=== PATIENT | female | born 1995 | race Two or more races ===

== ENCOUNTER 2021-04-14 09:21 | Emergency (ER) | payer OTHER ==
[~2021-04-14] VITALS: Ht 160 cm; Wt 75.8 kg
[2021-04-14] MEDS ORDERED: PROMETHAZINE 25 MG/ML, 1ML ONE (09:54)
[2021-04-14] MEDS ORDERED: HYDROcodone/APAP 5/325 TABLET ONE ×2 (09:56→11:14)
[2021-04-14] MEDS ORDERED: HYDROcodone/APAP 5/325 TABLET PO ONE (10:00)
[2021-04-14] MEDS ORDERED: PROMETHAZINE 25 MG/ML, 1ML IM ONE (10:00)
[2021-04-14 10:09] LABS: MICROSCOPIC INDICATED
[2021-04-14 10:11] LABS: HCG UR SG 1.033 (1.003-1.030)
[2021-04-14] MEDS ORDERED: SODIUM CHLORIDE FLUSH 10ML SYR IVF ONE (10:30)
[2021-04-14 10:50] LABS: BASOPHILS % (AUTO) 0 % (0-1); EOSINOPHILS % (AUTO) 1 % (1-7); LYMPHOCYTES % (AUTO) 13 % (22-44); MEAN CORPUSCULAR HEMOGLOBIN 29.4 pg (27.0-34.8); MEAN CORPUSCULAR HGB CONC 33.8 g/dL (32.4-35.8); MEAN PLATELET VOLUME 9.3 fL (7.4-10.4); MONOCYTES % (AUTO) 5 % (2-9); NEUTROPHILS % (AUTO) 82 % (42-75); PLATELET COUNT 234 x10^3/uL (130-400); RED BLOOD COUNT 4.55 x10^6/uL (3.82-5.3); RED CELL DISTRIBUTION WIDTH 13.8 % (9.6-15.2)
[2021-04-14 10:59] LABS: ALANINE AMINOTRANSFERASE 33 U/L (12-78); ALBUMIN 3.7 g/dL (3.4-5.0); ANION GAP 5 mmol/L (5-15); CHLORIDE 111 mmol/L (98-107); CREATININE 0.69 mg/dL (0.55-1.02)
[2021-04-14 11:01] LABS: ALKALINE PHOSPHATASE 88 U/L (45-117); BILIRUBIN,TOTAL 0.3 mg/dL (0.2-1.0); TOTAL PROTEIN 7.5 g/dL (6.4-8.2)
[2021-04-14] MEDS ORDERED: OMNIPAQUE 350 MG/ML, 100ML BOTTLE ONE (11:15)
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
--- NOTE | 2021-04-14 11:20 | NUR ---
PT TO CT W TECH
[2021-04-14 13:01] VITALS: BP 103/62
== END 2021-04-14 13:25 | disposition home or self-care (01) ==
LOC: ED 12:14
DX: N20.1 Calculus of ureter (principal); R10.31 Right lower quadrant pain; R11.2 Nausea with vomiting, unspecified
CPT/HCPCS: 36415; 74177; 80053; 81001; 81025; 83690; 85025; 96372; 99285; J2550; Q9967